=== PATIENT | male | born 1940 | race Caucasian/White ===

== ENCOUNTER 2018-04-19 12:41 | Inpatient (IN) | payer OTHER ==
[~2018-04-19] VITALS: Ht 188 cm; Wt 86.9 kg
[~2018-04-19 12:41] MED LIST: ALDACTONE25 MG PO; CALCIUM + VITA1 EACH PO; CARVEDILOL12.5 MG PO; CENTRUM SILVER1 EAC2 PO; COUMADIN 5 MG TA5 M1 PO; DUONEB 2.5-0.5 M3 ML INH; FISH OIL 1,0001 EAC9 PO; FLOMAX0.4 MG PO; LANOXIN 0.120.125 M1 PO; LASIX 40 MG TAB40 M1 PO; LASIX 40 MG TAB40 M2 PO; MEDROLDOSEPACK PO; OXYCONTIN10 M1 PO; PERCOCET PO; PREDNISONE 10 M10 MG PO; PRINIVIL20 MG PO; PROAIR HFA8.5 GM INH; PROBIOTIC1 EAC1 PO; PROTONIX40 M1 PO; SENOKOT-S1 TA1 PO; SINGULAIR 10 MG10 M1 PO; SPIRIVA INH; ZPAK PO
[2018-04-19 12:44] VITALS: BP 128/68
[2018-04-19] MEDS ORDERED: CARDIZEM CD180 MG PO (12:54)
[2018-04-19] MEDS ORDERED: POTASSIUM20 PO (12:54)
[2018-04-19] MEDS ORDERED: COUMADIN 1MG TAB1 M1 PO (12:55)
[2018-04-19] MEDS ORDERED: ALDACTONE50 MG PO (12:56)
[2018-04-19] MEDS ORDERED: ANORO ELLIPTA1 EACH INH (12:57)
[2018-04-19] MEDS ORDERED: METAMUCIL POWD174 GM PO (12:58)
[2018-04-19] MEDS ORDERED: FOLIC ACID1 MG PO (12:59)
[2018-04-19] MEDS ORDERED: DEXAMETHASONE 44 M1 PO (12:59)
[2018-04-19] MEDS ORDERED: LIDOCAINE-PRILO30 GM TRANSDERM (13:00)
[2018-04-19] MEDS ORDERED: [UNRECOGNIZED DRUG - OTHER] PO (13:01)
[2018-04-19] MEDS ORDERED: ONDANSETRON HCL4 M2 PO (13:02)
[2018-04-19 13:31] LABS: HEMATOCRIT 23.5 % (42.0-52.0); HEMOGLOBIN 8.2 gm/dL (14.0-18.0); MCH 33.9 pg (26.0-34.0); MCV 96.8 fL (80.0-100.0); MPV 7.5 fl. (7.2-11.1); NUCLEATED RBCS 0 /100WBC; PLATELET COUNT* 91 thou/uL (150-400); RBC 2.43 mil/uL (4.50-6.00)
[2018-04-19 13:33] LABS: WBC 1.9 thou/uL (4.0-11.0)
[2018-04-19 13:35] LABS: INR 1.4; PROTIME 13.4 Seconds (9.20-11.50)
[2018-04-19 13:41] LABS: ANION GAP 7 mmol/L (7-16); BUN 39 mg/dL (7-18); CALCIUM 8.9 mg/dL (8.5-10.1); CHLORIDE 98 mmol/L (98-107); CO2 30 mmol/L (21-32); CREATININE 1.5 mg/dL (0.6-1.3); GLUCOSE 106 mg/dL (70-99); POTASSIUM 4.4 mmol/L (3.5-5.1); SODIUM 135 mmol/L (136-145)
[2018-04-19 13:52] LABS: ALBUMIN 3.1 g/dL (3.4-5.0); ALKALINE PHOSPHATASE 27 U/L (46-116); LIPASE 62 U/L (73-393); MAGNESIUM 1.8 mg/dL (1.8-2.4); NT-PRO BRAIN NAT PEPTIDE 1961 pg/mL (<300); SGOT 18 U/L (15-37); SGPT 38 U/L (30-65); TOTAL BILIRUBIN 1.4 mg/dL (<0.1-1.0); TROPONIN-I LEVEL <0.06 ng/mL (<0.06)
[2018-04-19 14:15] LABS: ABSOLUTE LYMPHOCYTES 0.8 thou/uL (0.8-5.3); ABSOLUTE MONOCYTES 0.1 thou/uL (0.0-1.2); PLATELET ESTIMATE DECREASED
[2018-04-19 14:16] LABS: ANISOCYTOSIS 1+; OVALOCYTES Occasional
[2018-04-19 14:17] LABS: HYPOCHROMASIA 1+; MACROCYTES Occasional; MICROCYTES Occasional
--- NOTE | 2018-04-19 15:15 | EKG ---
[place] [address] ELECTROCARDIOGRAM REPORT Name: MILENA WALKER Room: [address] IN [facility]#: [id number] Admission: 04/19/18 Attend Phys: Ruiz Regalado MD Discharge: Date of : 40 Report #: [id number] THIS REPORT FOR: //name// [facility] ED Test Date: 2018-04-19 Test Time: 12:45:15 Pat Name: MILENA WALKER Department: Room: Gender: Senior Strategy Manager: DEVAUGHN : 1940 Requested By: Farhat Taylor Order Number: [id number] MD: Maury Durbin Measurements Intervals [place] Rate: 107 P: IA: QRS: 49 QRSD: 141 T: -40 QT: 342 QTc: 457 Interpretive Statements Atrial fibrillation Right bundle branch block Borderline ST depression, lateral leads Compared to ECG 09/06/2016 13:23:27 Right bundle-branch block now present ST (T wave) deviation now present Ventricular premature complex(es) no longer present Ventricular-paced complex(es) or rhythm no longer present Electronically Signed On 04-19-2018 15:15:10 CDT by Maury Durbin [email or web address] <ELECTRONICALLY SIGNED> By: Maury Durbin MD, [facility] 04/19/18 1515 1245 1245 Maury Durbin MD, [facility] /EPI
[2018-04-19 16:15] VITALS: BP 137/65; BP 147/69
[2018-04-19 20:40] VITALS: BP 112/68
[2018-04-20] VITALS: BP 103/53
[2018-04-20 04:00] VITALS: BP 94/55
[2018-04-20 04:56] LABS: ABSOLUTE LYMPHOCYTES 0.2 thou/uL (0.8-5.3); ABSOLUTE NEUTROPHILS 0.5 thou/uL (1.6-8.1); HEMOGLOBIN 7.4 gm/dL (14.0-18.0)
[2018-04-20 04:58] LABS: BASOPHILS 0.4 %; EOSINOPHILS 0.5 %; HEMATOCRIT 21.1 % (42.0-52.0); LYMPHOCYTES 23.3 %; MCH 33.9 pg (26.0-34.0); MCV 96.9 fL (80.0-100.0); MONOCYTES 4.3 %; NUCLEATED RBCS 0 /100WBC; PLATELET COUNT* 67 thou/uL (150-400); POLYS 71.5 %; RBC 2.18 mil/uL (4.50-6.00); RDW-CV 17.7 % (10.5-14.5)
[2018-04-20 05:24] LABS: WBC 0.7 thou/uL (4.0-11.0)
[2018-04-20 05:29] LABS: CALCIUM 8.7 mg/dL (8.5-10.1); CREATININE 1.3 mg/dL (0.6-1.3); POTASSIUM 4.4 mmol/L (3.5-5.1)
[2018-04-20 07:30] VITALS: BP 104/63
[2018-04-20 12:30] VITALS: BP 114/52
[2018-04-20 15:48] VITALS: BP 105/67
--- NOTE | 2018-04-20 16:04 | 2DMMODE ---
[place] [address] 2 D/M-MODE ECHOCARDIOGRAM Name: MILENA WALKER Room: [address] IN [facility]#: [id number] Admission: 04/19/18 Attend Phys: Ruiz Regalado, Discharge: Date of : 40 Date of Service: 04/20/18 1604 Report #: [id number] THIS REPORT FOR: //name// APPROVED REPORT Study performed: 04/20/2018 13:53:41 EXAM: Comprehensive 2D, Doppler, and color-flow Echocardiogram Patient Location: In-Patient Room #: 200 Status: routine BSA: 2.13 HR: 82 bpm BP: 114/52 mmHg Rhythm: Atrial Fibrillation Other Information Study Quality: Good Indications Atrial Fibrillation 2D Dimensions IVSd: 14.43 (7-11mm) LVOT Diam: 25.78 (18-24mm) LVDd: 50.78 mm PWd: 7.98 (7-11mm) Ascending Ao: 38.53 (22-36mm) LVDs: 34.91 (25-40mm) Aortic Root: 35.67 mm Volumes Left Atrial Volume (Systole) LA ESV Index: 56.50 mL/m2 Aortic Valve AoV Peak Thomas.: 0.96 m/s AO Peak Gr.: 3.67 mmHg LVOT Max P.67 mmHg AO Mean Gr.: 2.33 mmHg LVOT Mean P.82 mmHg LVOT Max V: 0.65 m/s AO V2 VTI: 16.59 cm LVOT Mean V: 0.42 m/s YARY (VTI): 4.27 cm2 LVOT V1 VTI: 13.57 cm Mitral Valve MV Decel. Time: 189.34 ms MV PHT: 54.91 ms MVA (PHT): 4.01 cm2 [place] [address] 2 D/M-MODE ECHOCARDIOGRAM Name: MILENA WALKER Room: [address] IN .R.#: [id number] Admission: 04/19/18 Attend Phys: Ruiz Regalado, Discharge: Date of : 40 Date of Service: 04/20/18 1604 Report #: [id number] TDI Medial E' Thomas.: 0.17 m/s Lateral E' Thomas.: 0.19 m/s Pulmonary Valve PV Peak Thomas.: 0.82 m/s PV Peak Gr.: 2.68 mmHg Tricuspid Valve RAP Estimate: 5.00 mmHg TR Peak Gr.: 45.52 mmHg RVSP: 50.52 mmHg PA Pressure: 50.52 mmHg Left Ventricle The left ventricle is normal size. There is global hypokinesis of the left ventricle. Mild septal hypertrophy is present. Left ventricular systolic function is moderately decreased. LVEF is 40-45%. This study is not technically sufficient to allow evaluation of the LV diastolic function due to atrial fibrillation. Right Ventricle Right ventricle is dilated. Right ventricle is mildly hypokinetic. Pacemaker lead is present in the right ventricle. Atria Left atrium is severely dilated. Right atrium is dilated. Aortic Valve The aortic valve is normal in structure. No aortic regurgitation is present. There is no aortic valvular stenosis. Mitral Valve The mitral valve is normal in structure. Trace mitral regurgitation. No evidence of mitral valve stenosis. Tricuspid Valve The tricuspid valve is normal in structure. estimated pa pressure 70 mm Hg mild tricuspid regurgitation Pulmonic Valve Pulmonic valve is not well visualized.. There is no pulmonic valvular regurgitation. Great Vessels Aortic root is mildly dilated. IVC is normal in size and collapses with >50% [place] [address] 2 D/M-MODE ECHOCARDIOGRAM Name: MILENA WALKER Room: [address] IN [facility]#: [id number] Admission: 04/19/18 Attend Phys: Ruiz Regalado, Discharge: Date of : 40 Date of Service: 04/20/18 1604 Report #: [id number] Pericardium There is no pericardial effusion. <Conclusion> LVEF is 40-45%. Right ventricle is dilated. Left atrium is severely dilated. Right atrium is dilated. estimated pa pressure 70 mm Hg mild tricuspid regurgitation <ELECTRONICALLY SIGNED> By: Wil Herrera MD, [facility] 04/20/18 1604 1604 1604 Wil Herrera MD, FAC /INF
[2018-04-20] MEDS ORDERED: METAMUCIL POWD575 G1 PO (17:16)
[2018-04-20 20:00] VITALS: BP 110/58
[2018-04-21] VITALS: BP 111/76
[2018-04-21 04:00] VITALS: BP 101/68
[2018-04-21 08:15] VITALS: BP 109/54
[2018-04-21 08:30] VITALS: BP 114/49
[2018-04-21 11:33] VITALS: BP 109/54
--- NOTE | 2018-04-23 07:19 | CON ---
[address] [address] CONSULTATION Name: MILENA WALKER Room: [address] IN M.R.#: [id number] Admission: 04/19/18 Attend Phys: Ruiz Regalado MD Discharge: 04/21/18 Date of : 40 Report #: [id number] THIS REPORT FOR: //name// CC: Ruiz Butler DATE OF SERVICE: 04/20/2018 HISTORY OF PRESENT ILLNESS: The patient is a 77-year-old white male who I was asked to see in the hospital today because of atrial fibrillation. The history is obtained from the patient. There are no old records available. The patient has been here to [place] before. He was actually admitted here in 2014 with shortness of breath. He is felt to have COPD. He had permanent atrial fibrillation. He was seen at that time by my partner, Dr. Apodaca. The patient has been chronically anticoagulated with warfarin. He actually had an echocardiogram in 2014 that showed ejection fraction of greater than 65% with dilated right atrium and right ventricle. The left atrium is dilated as well. The patient apparently has never been cardioverted. He has been in AFib for years. He is currently followed by Dr. Crocker, a digital media analyst at [facility]. In 2014, he underwent implantation of a single lead Biotronik MRI compatible pacemaker at [facility]. He does have a home transmitter. The patient has had no bleeding problems, taken his warfarin. The patient approximately several months ago was diagnosed with stage 4 lung cancer. He has been treated with chemotherapy and radiation therapy. His last treatment was about 3 weeks ago. For the last week, he has been more short of breath and fatigued. He has been in bed. He does have chronic back pain. The patient came to the Emergency Room yesterday afternoon with increasing shortness of breath, loss of appetite. He was admitted to a monitored bed. Cardiology consultation was requested. The patient denies a history of myocardial infarction or chest pain. He has had no fever or cough. PAST MEDICAL HISTORY: Otherwise significant for previous tonsillectomy, appendectomy, a plate in his wrist. He has no history of hypertension, diabetes, hyperlipidemia. He does have chronic edema. MEDICATIONS: Include Carvedilol, albuterol treatment, Lasix, OxyContin, Protonix, spironolactone, warfarin. ALLERGIES: HE HAS INTOLERANCE TO PENICILLIN, XANAX, LEVOFLOXACIN. FAMILY HISTORY: No history of heart disease. SOCIAL HISTORY: He is . He and his live in [place], [place]. He is a retired salesman from Smokes a pack of cigarettes a day, quit [address] [place] [address] CONSULTATION Name: MILENA WALKER Room: [address]#: [id number] Admission: 04/19/18 Attend Phys: Ruiz Regalado MD Discharge: 04/21/18 Date of : 40 Report #: [id number] years ago. Has about 2 glasses of alcohol a day. REVIEW OF SYSTEMS: He has had no history of stroke, peptic ulcer disease, liver disease, kidney disease. He does have chronic back pain. He received epidurals. He apparently is off his warfarin. He is supposed to have an epidural today. PHYSICAL EXAMINATION: GENERAL: Revealed an elderly male, lying in bed. He appeared in no acute distress. VITAL SIGNS: He had a blood pressure of 100/60, pulse is 70, he was afebrile. HEENT: He is anicteric. Conjunctivae pink. Mucous membranes moist. NECK: Veins does not appear distended. No carotid bruits. Neck was supple. CHEST: Revealed distant breath sounds. CARDIOVASCULAR: Irregular rhythm. No significant murmur. ABDOMEN: Soft, nontender. EXTREMITIES: Had no edema. Dorsalis pedis pulse 2+ in the right, could not be palpated on the left. SKIN: Cool and dry. NEUROLOGIC: Nonfocal. DIAGNOSTIC DATA: His ECG shows atrial fibrillation with controlled ventricular response rate, nonspecific ST and T-wave change. Occasional ventricular paced beat. His workup, he had a portable chest x-ray that showed normal heart size. Venous port in place. Left-sided pacemaker. No infiltrates. CT scan of the chest using a PE protocol showed no pulmonary emboli, COPD, lung nodule in left upper lobe consistent with neoplasm, multiple bone lesions, a lytic lesion in the rib. Multiple cysts, appear stable. LABORATORY DATA: Sodium 133, creatinine 1.3, glucose 148, albumin 3.1. BNP 1961. INR is 1.4. White blood cell count 0.7, hemoglobin 7.4, platelet count 67,000. IMPRESSION AND RECOMMENDATIONS: 1. Atrial fibrillation, chronic. The patient has been rate controlled. The patient has been off his warfarin for possible epidural. At this time, I would hold his warfarin until his platelet count increases. 2. Metastatic lung cancer. The patient is a DNR. 3. Pancytopenia. The patient received chemotherapy 3 weeks ago. 4. Chronic back pain. The patient was off his warfarin for possible epidural. 5. Previous tobacco abuse. [place] [address] CONSULTATION Name: MILENA WALKER Room: [address] M.R.#: [id number] Admission: 04/19/18 Attend Phys: Ruiz Regalado MD Discharge: 04/21/18 Date of : 40 Report #: [id number] 6. Chronic obstructive pulmonary disease. 7. Cor pulmonale. The patient is on Lasix. <ELECTRONICALLY SIGNED> By: Wil Herrera MD, FACC 04/23/18 0719 0858 1511Dok Herrera MD, FACC /nt
--- NOTE | 2018-04-23 15:00 | CON ---
[address] [address] CONSULTATION Name: MILENA WALKER Room: [address] IN M.R.#: [id number] Admission: 04/19/18 Attend Phys: Ruiz Regalado MD Discharge: 04/21/18 Date of : 40 Report #: [id number] THIS REPORT FOR: //name// CC: Ruiz Mirandatatianna Butler DATE OF SERVICE: 04/20/2018 DIAGNOSIS: Non-small cell lung cancer, adenocarcinoma. Current treatment carbo, Alimta and Keytruda every 3 weeks. PRIMARY ONCOLOGIST: Dr Lee from [facility] cancer specialist. SUBJECTIVE: A 77-year-old male who was admitted because of shortness of breath, and he was hypoxic. He was supposed to have oxygen at home; however, he developed severe fatigue and weakness, unable to get out of bed, and he called an ambulance. He was found to be in AFib with RVR. The patient did not have any chest pain; however, he has a dry cough. At this point, his heart rate has been controlled with a Cardizem drip. Initial CBC at the hospital yesterday and today showed neutropenia, his WBC count is 0.7, hemoglobin 7.4, platelets 67. By the time of evaluation, the patient started feeling a little bit better. No nausea or vomiting. PAST MEDICAL HISTORY: Adenocarcinoma, nonsmall cell lung cancer, on carbo, Alimta plus Keytruda for the last 3-4 months. CHF, COPD, AFib with RVR. Renal insufficiency. Neuropathy. MEDICATIONS: Per admission list. ALLERGIES: PENICILLIN, CEPHALEXIN, GABAPENTIN, MIDAZOLAM. PAST SURGICAL HISTORY: Appendectomy, tonsillectomy. SOCIAL HISTORY: He is a former smoker for 10 years, around 1 pack per day. He drinks alcohol on a daily basis. PHYSICAL EXAMINATION: VITAL SIGNS: Today, temperature is 36.7, pulse 75, respirations 18, blood pressure is 103/53, SpO2 was 100% on 2 liters. GENERAL: The patient was lying in bed. He was not in acute distress. LUNGS: Clear to auscultation bilaterally. HEART: Regular rate and rhythm, S1, S2 within normal limits. ABDOMEN: Soft, nontender, nondistended, bowel sounds positive. LABORATORY DATA: Today, WBC is 0.7, hemoglobin 7.4, platelets 67. PT 13.4, [place] [address] CONSULTATION Name: MILENA WALKER Room: [address]#: [id number] Admission: 04/19/18 Attend Phys: Ruiz Regalado MD Discharge: 04/21/18 Date of : 40 Report #: [id number] D-dimer 0.4. Creatinine is 1.3, calcium is 8.7, alkaline phosphatase 27, ALT is 18, AST is 38. IMAGING: CT scan of the chest showed no PE; however, there are COPD changes with a spiculated subpleural lesion in the periphery concerning of his known lung metastases, multiple bone lesions sclerotic with 1 lytic destructive lesion in the left anterior fourth rib and multiple hepatic cysts. ASSESSMENT AND PLAN: A 77-year-old male was treated for adenocarcinoma, nonsmall cell lung cancer with bone metastases, with carbo, Alimta and Keytruda, came in because of shortness of breath and atrial fibrillation with rapid ventricular response. The patient had cytopenias. the etiologies are due to myelosuppression. Since the patient does not have any fever, no active infection, I would like just to monitor the patient for fever or any clinical signs of infection. At this point, I would like to hold on G-CSF, most likely his counts will ulisses and then recover. No need for transfusion today. <ELECTRONICALLY SIGNED> By: Shirley Velez MD 04/23/18 1500 0744 [id number] Velez MD /nt
== END 2018-04-21 12:33 | disposition home or self-care (01) | DRG 291 ==
LOC: M.ERS 12:41 → M.2W 14:33 → M.TBA-ER 14:33 → M.2W 16:25
PROVIDERS: Emergency Medicine Emergency Medical Services; ADMIT Internal Medicine
DX: I50.43 Acute on chronic combined systolic (congestive) and diastolic (congestive) heart failure (principal); J96.21 Acute and chronic respiratory failure with hypoxia; D61.810 Antineoplastic chemotherapy induced pancytopenia; C34.90 Malignant neoplasm of unspecified part of unspecified bronchus or lung; E44.0 Moderate protein-calorie malnutrition; C79.51 Secondary malignant neoplasm of bone; G62.9 Polyneuropathy, unspecified; I48.2 Chronic atrial fibrillation; Z66 Do not resuscitate; M54.9 Dorsalgia, unspecified; G89.3 Neoplasm related pain (acute) (chronic); T45.1X5A Adverse effect of antineoplastic and immunosuppressive drugs, initial encounter; J43.9 Emphysema, unspecified; J84.10 Pulmonary fibrosis, unspecified; I27.29 Other secondary pulmonary hypertension; Z68.24 Body mass index [BMI] 24.0-24.9, adult; Y92.89 Other specified places as the place of occurrence of the external cause; Z90.49 Acquired absence of other specified parts of digestive tract; Z87.891 Personal history of nicotine dependence; Z92.21 Personal history of antineoplastic chemotherapy; Z79.01 Long term (current) use of anticoagulants; Z79.899 Other long term (current) drug therapy; Z88.1 Allergy status to other antibiotic agents; Z88.0 Allergy status to penicillin; Z88.8 Allergy status to other drugs, medicaments and biological substances